=== PATIENT | female | born 1970 | race Caucasian/White ===

== ENCOUNTER 2016-04-25 14:25 | Day surgery (SDC) | payer MEDICAID ==
[~2016-04-25] VITALS: Ht 175.3 cm; Wt 69.0 kg
[2016-04-25] VITALS (7 sets, daily range): BP systolic 103–125; BP diastolic 44–75; PULSE 51–92; TEMP 98.7
[2016-04-25] MEDS ORDERED: ULTRAM 50MG TAB50 MG PO (15:31)
[2016-04-25] MEDS ORDERED: SELENIUM200 MC5 PO (15:32)
[2016-04-25] MEDS ORDERED: BIOTIN10000 MC1 PO (15:32)
[2016-04-25] MEDS ORDERED: EXCEDRIN TENSIO1 TAB PO (15:33)
== END 2016-04-25 19:40 | disposition home or self-care (01) ==
LOC: SDCO 14:25 → SURG 17:20 → SDCO 18:15
DX: N20.1 Calculus of ureter (principal); Z80.1 Family history of malignant neoplasm of trachea, bronchus and lung; Z80.49 Family history of malignant neoplasm of other genital organs
CPT/HCPCS: OP; C1769; C1894; C2617; J0690; J1885; J2405; J2704; J3010; J7120; Q9967

== ENCOUNTER 2018-07-02 10:36 | Day surgery (SDC) | payer MEDICAID ==
[~2018-07-02] VITALS: Ht 175.3 cm; Wt 67.6 kg
[2018-07-02] VITALS (7 sets, daily range): BP systolic 110–122; BP diastolic 41–81; PULSE 52–86; TEMP 97.6–98.5
[~2018-07-02 10:36] MED LIST: BIOTIN10000 MC1 PO; EXCEDRIN TENSIO1 TAB PO; SELENIUM200 MC5 PO; ULTRAM 50MG TAB50 MG PO
--- NOTE | 2018-07-02 14:45 | NUR ---
PATIENT FROM PACU AFTER PROCEDURE. VS APPEAR STABLE. PATIENT NEEDING TO GO TO BATHROOM. WILL HELP PATIENT TO BATHROOM.
--- NOTE | 2018-07-02 14:55 | NUR ---
PATIENT VOIDED. LIGHT PINK URINE. VS APPEAR STABLE. WILL GET PATIENT FOOD AND DRINK. WILL CONTINUE TO MONITOR.
--- NOTE | 2018-07-02 15:00 | NUR ---
PATIENT VS APPEAR STABLE. FRIEND NOW AT BEDSIDE. PATIENT HAS FOOD AND DRINK. NO COMPLAINTS AT THIS TIME.
--- NOTE | 2018-07-02 15:15 | NUR ---
PATIENT HAS VOIDED AGAIN, REPORTS A BIT OF BURNING. VS APPEAR STABLE. WILL WORK ON DISCHARGE PAPERWORK FOR PATIENT. PATIENT HAS ATE AND DRANK WITHOUT ISSUE OR NAUSEA.
--- NOTE | 2018-07-02 15:30 | NUR ---
PATIENT ALERT, ORIENTED, AND NO COMPLAINTS. READY TO LEAVE. HAS MANY QUESTIONS ABOUT PROCEDURE AND FOLLOW UP.
--- NOTE | 2018-07-02 16:08 | NUR ---
SPENT TIME WITH PATIENT GOING OVER QUESTIONS, FOLLOW UP AND DISCHARGE INSTRUCTIONS. PATIENT IS GOING TO GO TO BATHROOM AND THEN GET DRESSED. IV TAKEN OUT.
== END 2018-07-02 16:10 | disposition home or self-care (01) ==
LOC: SDCO 10:36
DX: N20.1 Calculus of ureter (principal); M41.9 Scoliosis, unspecified; F17.210 Nicotine dependence, cigarettes, uncomplicated; Z80.1 Family history of malignant neoplasm of trachea, bronchus and lung; Z80.49 Family history of malignant neoplasm of other genital organs; Z82.49 Family history of ischemic heart disease and other diseases of the circulatory system; Z83.3 Family history of diabetes mellitus; Z79.899 Other long term (current) drug therapy
CPT/HCPCS: C1769; C2617; J0690; J2704; J3010; J7120; Q9967

== ENCOUNTER 2018-07-09 13:07 | Day surgery (SDC) | payer MEDICAID ==
[~2018-07-09] VITALS: Ht 175.3 cm; Wt 67.9 kg
[2018-07-09] MEDS ORDERED: PYRIDIUM 100MG100 MG PO (13:33)
[2018-07-09 13:34] VITALS: BP 115/77; PULSE 77; TEMP 99
[2018-07-09 19:10] VITALS: BP 120/75; PULSE 60; TEMP 97.4
--- NOTE | 2018-07-09 19:10 | NUR ---
Patient arrives back to [facility] alert, denies pain; reports slight nausea, denies wanting or needing any nausea medication. Patient monitor applied. Vitals stable.
--- NOTE | 2018-07-09 19:15 | NUR ---
Patient up to restroom without any difficulties and is able to void without any complications.
[2018-07-09 19:16] VITALS: TEMP 97.2
[2018-07-09 19:25] VITALS: BP 112/57; PULSE 60
[2018-07-09 19:40] VITALS: BP 114/61; PULSE 58
--- NOTE | 2018-07-09 19:45 | NUR ---
Patient tolerates food and drink without any complications. Reports nausea is gone and denies pain. Patient up to restroom again without any difficulties. Patient reports she is ready to go home.
--- NOTE | 2018-07-09 19:55 | NUR ---
Signal Operator contacted at this time to obtain take home pack of [place] for patient due to pharmacy being closed.
--- NOTE | 2018-07-09 19:59 | NUR ---
Discharge criteria has been met. PIV removed with catheter intact and hemostasis achieved. Discharge instructions discussed, denies any questions, and verbalizes understanding. Patient changing to clothing independently.
--- NOTE | 2018-07-09 20:07 | NUR ---
Patient escorted to exit via wheelchair by JUSTIN Lacy. Patient discharged to home with ride by [employer] service at this time.
== END 2018-07-09 20:07 | disposition home or self-care (01) ==
LOC: SDCO 13:07
DX: N20.0 Calculus of kidney (principal); F17.210 Nicotine dependence, cigarettes, uncomplicated; Z83.3 Family history of diabetes mellitus; Z82.49 Family history of ischemic heart disease and other diseases of the circulatory system; Z80.1 Family history of malignant neoplasm of trachea, bronchus and lung; Z80.49 Family history of malignant neoplasm of other genital organs
CPT/HCPCS: C1769; C1894; C2617; J0330; J0690; J1100; J1885; J2405; J2704; J3010; J7120; Q9967